=== PATIENT | female | born 1980 | race Caucasian/White ===

== ENCOUNTER 2020-03-10 20:48 | Observation (INO) ==
[2020-03-10 21:32] LABS: Hematocrit (blood only) 38.5 % (37-47); Hemoglobin 13.6 g/dL (12.0-16.0); Immature Granulocytes # (auto) 0.01 K/uL (0.00-0.02); Immature Granulocytes % (auto) 0.2 %; Lymphocytes # (auto) 0.38 K/uL (1.2-3.4); Lymphocytes % (auto) 6.6 %; Mean Corpuscular Hemoglobin 32.9 pg (25-34); Mean Corpuscular Hgb Conc 35.3 g/dL (32-36); Mean Corpuscular Volume 93.2 fL (80-100); Mean Platelet Volume 10.4 fL (7.4-10.4); Monocytes # (auto) 0.34 K/uL (0.11-0.59); Monocytes % (auto) 5.9 %; Neutrophils # (auto) 4.99 K/uL (1.4-6.5); Neutrophils % (auto) 87.3 %; Platelet Count 212 K/uL (130-400); RDW Standard Deviation 40.9 fL (36.4-46.3); Red Blood Count 4.13 M/uL (4.2-5.4); White Blood Count 5.72 K/uL (4.8-10.8)
[2020-03-10 21:35] LABS: INR 1.2 (0.9-1.1); Partial Thromboplastin Ratio 0.9; Partial Thromboplastin Time 25.5 Seconds (21.0-31.0); Prothrombin Time 12.1 Seconds (9.0-12.0)
[2020-03-10 21:41] LABS: Alanine Aminotransferase 18 U/L (12-78); Albumin Level 3.6 gm/dl (3.4-5.0); Aspartate Aminotransferase 13 U/L (15-37); BUN Creatinine Ratio 12.3 (10-20); Blood Urea Nitrogen 12 mg/dl (7-18); Calcium 8.5 mg/dl (8.5-10.1); Carbon Dioxide 25 mmol/L (21-32); Chloride 107 mmol/L (98-107); Est GFR (African American) 86.8; Est GFR (Non-African American) 74.9; Glucose 150 mg/dl (70-99); Magnesium 1.9 mg/dl (1.8-2.4); Potassium 3.9 mmol/L (3.5-5.1); Sodium 139 mmol/L (136-145)
[2020-03-10 21:55] LABS: Albumin Globulin Ratio 1.1 (0.9-2); Alkaline Phosphatase 64 U/L (45-117); Bilirubin,Total 3.1 mg/dl (0.2-1); Globulin 3.2 gm/dl (2.5-4.0); Thyroid Stimulating Hormone 0.487 uIu/ml (0.300-4.500); Total Protein 6.8 gm/dl (6.4-8.2); Troponin I 0.365 ng/ml (0-0.045)
[2020-03-10] MEDS ORDERED: SODIUM CHLORIDE 0.9% 1000ML 1,000 ML IV ONE (22:02)
--- NOTE | 2020-03-10 22:03 | XRay Report ---
XR chest 1V portable HISTORY: weakness COMPARISON: None. FINDINGS: The lungs are clear. Cardiac silhouette is normal in size. No pleural effusions. No pneumot horax. IMPRESSION: No acute process. ACT 112: Negative or not required by law. Electronically signed by: Diego Glasgow M.D. 03/10/2020 10:01 PM
[2020-03-10 22:19] LABS: Creatine Kinase 71 U/L (26-192); Phosphorus 2.1 mg/dl (2.5-4.9)
[2020-03-10 22:26] LABS: Appearance Urine Clear (Clear); Bacteria Urine Automated Negative (Negative); Bilirubin Urine Negative (Negative); Blood Urine 2+ (Negative); Cast Urine Automated 0 /lpf (0-5); Color Urine Yellow; Epithelial Cell Urine Auto >30 /lpf (0-5); Glucose Urine UA Negative (Negative); Ketones Urine Trace (Negative); Leukocyte Esterase Urine Negative (Negative); Nitrite Urine Negative (Negative); Protein Urine Negative (Negative); Specific Gravity Urine 1.013 (1.000-1.030); Urobilinogen Urine Negative (Negative)
--- NOTE | 2020-03-10 23:15 | Emergency Department Note ---
History of Present Illness General Chief complaint: Illness Stated complaint: NUMBNESS IN BOTH HANDS AND FEET Time Seen by Provider: 03/10/20 21:39 History of Present Illness Maximum Pain Intensity: 2 This 39-year-old presents to the ER complaining of peripheral tingling who had a parathyroid removed earlier today Location: Hands and feet Quality: Tingling Severity: Moderate Duration: This evening Timin PM Context: Patient was concerned and came in Modifying factors: better with calcium; worse with nothing Dr. Laguerre removed her parathyroid gland on the right side for hyperparathyroidism. She was discharged today. Surgery was at [facility] at 9:50 AM. Patient states she took 3750 mg of calcium just prior to arrival. Patient denies chest pain, dyspnea, fevers, flulike illness, nausea, vomiting, diarrhea, facial tingling leg swelling. She does complain of muscle cramping. She states she is healthy with no active medical problems. Home Medications Home Medications Medication Instructions Recorded Confirmed Type sertraline [Zoloft] 25 mg PO DAILY 03/10/20 03/10/20 History Past Med/Surg History Medical History Hyperparathyroidism Surgical History H/O parathyroidectomy Social History Feels Safe at Home: Yes Review of Systems A total of 10 systems reviewed and were otherwise negative Physical Exam Vital Signs Vital Signs - 24 hr 03/10/20 20:53 03/10/20 21:20 03/10/20 21:30 Temperature 36.5 C Temperature Source Oral Pulse Rate 83 77 Pulse Rate from SpO2 Sensor 76 Respiratory Rate 18 15 Respiratory Effort / Characteristics Non-Labored Spontaneous Respiratory Depth Normal Respiratory Pattern Regular Blood Pressure 108/69 111/68 Blood Pressure Mean 82 88 Blood Pressure Position Sitting Pulse Oximetry 96 100 Oxygen Delivery Method Room Air Room Air Sepsis Recent Fever Within 48 Hours No Sepsis New/Unexplained Change in Mental Status No Sepsis Action Taken by Nursing No Action Required 03/10/20 22:00 Temperature Temperature Source Pulse Rate 73 Pulse Rate from SpO2 Sensor 73 Respiratory Rate 19 Respiratory Effort / Characteristics Respiratory Depth Respiratory Pattern Blood Pressure 110/71 Blood Pressure Mean 80 Blood Pressure Position Pulse Oximetry 100 Oxygen Delivery Method Sepsis Recent Fever Within 48 Hours Sepsis New/Unexplained Change in Mental Status Sepsis Action Taken by Nursing VITALS: Vitals are noted on the nurse's note and reviewed by myself. Vital sig ns stable. GENERAL: Pleasant female, in no acute distress, nondiaphoretic, well-developed well-nourished. SKIN: Anterior neck with incision intact without signs of infection or hematoma, the rest of the skin was without rashes, erythema, edema, or bruising. There is no tenting of the skin. Capillary reflex less than 2 seconds. HEAD: Normocephalic atraumatic. EARS: External auditory canals clear, tympanic membranes pearly cline without erythema or effusion bilaterally. EYES: Pupils equal round and reactive to light and accommodation. Conjunctivae without injection, sclerae without icterus. Extraocular movements intact. NOSE: Patent, turbinates without inflammation or discharge. No sinus tenderness. MOUTH: Mucous membranes moist. Pharynx without erythema or exudate. Uvula midline. Airway patent. Tongue does not deviate. NECK: Supple without nuchal rigidity. No lymphadenopathy. No thyromegaly. Cervical spine is nontender. No JVD. HEART: Regular rate and rhythm without murmurs gallops or rubs. LUNGS: Clear to auscultation bilaterally without wheezes, rales or rhonchi. No retractions or accessory muscle use. ABDOMEN: Positive bowel sounds x 4. Normal tympanic percussion. Soft, nontender, without masses or organomegaly. Richards sign negative. No guarding or rebound tenderness. No CVA tenderness MUSCULOSKELETAL: No muscle atrophy, erythema, or edema noted. NEURO: Patient was alert and oriented to person place and time. Normal sensation to light and sharp touch. No focal neurological deficits. Course Administered Medications Discontinued Medications Sodium Chloride (Nss 1000ml) 1,000 mls @ 999 mls/hr IV .Q1H1M ONE Stop: 03/10/20 23:02 Last Admin: 03/10/20 22:21 Dose: 999 mls/hr Documented by: [id number] Medical Decision Making Medical Records Attestation: I reviewed the patient's medical records. Home Medications Current Medication List: was personally reviewed by md Laboratory Data Attestation: I reviewed the patient's lab results. Result diagrams: 03/10/20 21:13 03/10/20 21:13 Lab Results 03/10/20 03/10/20 03/10/20 Range/Units 21:13 21:13 21:13 WBC 5.72 (4.8-10.8) K/uL RBC 4.13 L (4.2-5.4) M/uL Hgb 13.6 (12.0-16.0) g/dL Hct 38.5 (37-47) % MCV 93.2 (80-100) fL MCH 32.9 (25-34) pg MCHC 35.3 (32-36) g/dL RDW Std Deviation 40.9 (36.4-46.3) fL RDW Coeff of Lisa 12.0 (11.5-14.5) % Plt Count 212 (130-400) K/uL MPV 10.4 (7.4-10.4) fL Immature Gran % (Auto) 0.2 % Neut % (Auto) 87.3 % Lymph % (Auto) 6.6 % Forrest % (Auto) 5.9 % Eos % (Auto) 0.0 % Baso % (Auto) 0.0 % Neut # (Auto) 4.99 (1.4-6.5) K/uL Lymph # (Auto) 0.38 L (1.2-3.4) K/uL Forrest # (Auto) 0.34 (0.11-0.59) K/uL Eos # (Auto) 0.00 (0-0.5) K/uL Baso # (Auto) 0.00 (0-0.2) K/uL Immature Gran # (Auto) 0.01 (0.00-0.02) K/uL PT 12.1 H (9.0-12.0) Seconds INR 1.2 H (0.9-1.1) APTT 25.5 (21.0-31.0) Seconds PTT Ratio 0.9 Sodium 139 (136-145) mmol/L Potassium 3.9 (3.5-5.1) mmol/L Chloride 107 (98-107) mmol/L Carbon Dioxide 25 (21-32) mmol/L Anion Gap 7.0 (3-11) BUN 12 (7-18) mg/dl Creatinine 0.95 (0.6-1.2) mg/dl Est Cr Clr Drug Dosing Not Reportable Est GFR ( Amer) 86.8 Est GFR (Non-Af Amer) 74.9 BUN/Creatinine Ratio 12.3 (10-20) Glucose 150 H (70-99) mg/dl Calcium 8.5 (8.5-10.1) mg/dl Ionized Calcium (1.12-1.32) mmol/L Phosphorus 2.1 L (2.5-4.9) mg/dl Magnesium 1.9 (1.8-2.4) mg/dl Total Bilirubin 3.1 H (0.2-1) mg/dl AST 13 L (15-37) U/L ALT 18 (12-78) U/L Alkaline Phosphatase 64 (45-117) U/L Total Creatine Kinase 71 (26-192) U/L Troponin I 0.365 H* (0-0.045) ng/ml Total Protein 6.8 (6.4-8.2) gm/dl Albumin 3.6 (3.4-5.0) gm/dl Globulin 3.2 (2.5-4.0) gm/dl Albumin/Globulin Ratio 1.1 (0.9-2) TSH 0.487 (0.300-4.500) uIu/ml PTH Intact (18.4-80.1) pg/ml Urine Color Urine Appearance (Clear) Urine pH (4.5-7.5) Ur Specific [place] (1.000-1.030) Urine Protein (Negative) Urine Glucose (UA) (Negative) Urine Ketones (Negative) Urine Blood (Negative) Urine Nitrite (Negative) Urine Bilirubin (Negative) Urine Urobilinogen (Negative) Ur Leukocyte Esterase (Negative) Urine WBC (Auto) (0-5) /hpf Urine RBC (Auto) (0-4) /hpf U Hyaline Cast (Auto) (0-5) /lpf U Epithel Cells (Auto) (0-5) /lpf Urine Bacteria (Auto) (Negative) 03/10/20 03/10/20 03/10/20 Range/Units 21:13 21:14 21:38 WBC (4.8-10.8) K/uL RBC (4.2-5.4) M/uL Hgb (12.0-16.0) g/dL Hct (37-47) % MCV (80-100) fL MCH (25-34) pg MCHC (32-36) g/dL RDW Std Deviation (36.4-46.3) fL RDW Coeff of Lisa (11.5-14.5) % Plt Count (130-400) K/uL MPV (7.4-10.4) fL Immature Gran % (Auto) % Neut % (Auto) % Lymph % (Auto) % Forrest % (Auto) % Eos % (Auto) % Baso % (Auto) % Neut # (Auto) (1.4-6.5) K/uL Lymph # (Auto) (1.2-3.4) K/uL Forrest # (Auto) (0.11-0.59) K/uL Eos # (Auto) (0-0.5) K/uL Baso # (Auto) (0-0.2) K/uL Immature Gran # (Auto) (0.00-0.02) K/uL PT (9.0-12.0) Seconds INR (0.9-1.1) APTT (21.0-31.0) Seconds PTT Ratio Sodium (136-145) mmol/L Potassium (3.5-5.1) mmol/L Chloride (98-107) mmol/L Carbon Dioxide (21-32) mmol/L Anion Gap (3-11) BUN (7-18) mg/dl Creatinine (0.6-1.2) mg/dl Est Cr Clr Drug Dosing Est GFR ( Amer) Est GFR (Non-Af Amer) BUN/Creatinine Ratio (10-20) Glucose (70-99) mg/dl Calcium (8.5-10.1) mg/dl Ionized Calcium 1.10 L (1.12-1.32) mmol/L Phosphorus (2.5-4.9) mg/dl Magnesium (1.8-2.4) mg/dl Total Bilirubin (0.2-1) mg/dl AST (15-37) U/L ALT (12-78) U/L Alkaline Phosphatase (45-117) U/L Total Creatine Kinase (26-192) U/L Troponin I (0-0.045) ng/ml Total Protein (6.4-8.2) gm/dl Albumin (3.4-5.0) gm/dl Globulin (2.5-4.0) gm/dl Albumin/Globulin Ratio (0.9-2) TSH (0.300-4.500) uIu/ml PTH Intact 23.5 (18.4-80.1) pg/ml Urine Color Yellow Urine Appearance Clear (Clear) Urine pH 8.0 H (4.5-7.5) Ur Specific [place] 1.013 (1.000-1.030) Urine Protein Negative (Negative) Urine Glucose (UA) Negative (Negative) Urine Ketones Trace H (Negative) Urine Blood 2+ H (Negative) Urine Nitrite Negative (Negative) Urine Bilirubin Negative (Negative) Urine Urobilinogen Negative (Negative) Ur Leukocyte Esterase Negative (Negative) Urine WBC (Auto) 1-5 (0-5) /hpf Urine RBC (Auto) 10-30 H (0-4) /hpf U Hyaline Cast (Auto) 0 (0-5) /lpf U Epithel Cells (Auto) >30 H (0-5) /lpf Urine Bacteria (Auto) Negative (Negative) Imaging Data Attestation: I personally reviewed and interpreted this imaging study as follows: MDM Narrative Prior records/ancillary studies reviewed and summarized above. Nursing notes reviewed. Additional history obtained from family. The patient's history was concerning for peripheral tingling. Differential diagnosis: Etiologies such as hypocalcemia, metabolic, infection, hypo/hyperglycemia, electrolyte abnormalities, cardiac sources, intracerebral event, toxicologic, neurologic, as well as others were entertained. Physical examination: As above. ER treatment provided: IV Lock An order was placed for continuous cardiac monitoring. The monitor shows a rate of 60-100 with a sinus rhythm. IV fluids On reassessment the patient felt better. Diagnostics interpretation by me: ECG: Ordered for tingling EKG: Normal sinus, normal intervals, no acute ST-T wave changes. Impression normal sinus with interpreted by myself I think arrhythmia is unlikely. EKG shows normal sinus rhythm with no interval abnormalities such as QT prolongation or WPW. There are no findings to suggest Brugada syndrome. Cardiac monitoring in the emergency department reveals no tachycardic or bradycardic dysrhythmia. Hypertrophic cardiomyopathy was considered but there are no clear historical elements pointing toward this. EKG is not suggestive. The QRS voltage is not extremely large and there are no suggestive Q waves. EKG #2: Ordered for elevated troponin EKG: Normal sinus, normal normals, no acute ST-T wave changes. Impression normal sinus rhythm surgical myself I think arrhythmia is unlikely. EKG shows normal sinus rhythm with no interval abnormalities such as QT prolongation or WPW. There are no findings to suggest B rugada syndrome. Cardiac monitoring in the emergency department reveals no tachycardic or bradycardic dysrhythmia. Hypertrophic cardiomyopathy was considered but there are no clear historical elements pointing toward this. EKG is not suggestive. The QRS voltage is not extremely large and there are no suggestive Q waves. The labs revealed elevated troponin. Slightly low ionized calcium. Imaging studies: Chest x-ray with no acute consolidation, pneumothorax or free air per my interpretation Consultation: A consultation was placed with Dr. Liu covering for Dr. Laguerre and recommend s 1500 mg of calcium 3 times a day and medical admission for elevated troponin. I spoke to Dr. Swartz, the hospitalist. The case was discussed and diagnostics were reviewed. The patient was evaluated in the ER for further treatment. HEART SCORE: Hx: high/mod/low suspicion: 0 ECG: ST depression/nonspecific changes/normal: 0 Age: Greater than 65/45-64/less than 45: 0 Risk factors: (Hypertension, hyperlipidemia, diabetes, coronary disease, tobacco use, cocaine use): 0 Troponin: Greater than 2 times normal limits/1-2 times normal limits/normal: 2 Total: 2 Exam and history seem consistent with elevated troponin and symptomatic hypocalcemia. Repeat troponin is unchanged. Patient had no chest pain or dyspnea. ENT and medicine were consulted. She will be admitted. By the evaluation outlined above emergent etiologies such as infection, electrolyte abnormalities, intracerebral event, toxologic, neurologic, abnormalities blood glucose, metabolic, as well as others were deemed relatively unlikely. The pt informed about the findings as listed above. All questions were answered and pleased with the treatment. The chart was completed utilizing [employer] Speech voice recognition software. Grammatical errors, random word insertions, pronoun errors, and incomplete sentences are an occassional consequence of this system due to software limitations, ambient noise, and hardware issues. Any formal questions or concerns about the content, text, or information contained within the body of this dictation should be directly addressed to the physician commercial lending assistant for clarification. Impression & Plan Elevated troponin, Tingling in extremities Discharge Plan Visit Data Chief Complaint: Illness Stated Complaint: NUMBNESS IN BOTH HANDS AND FEET ED Provider: Eldon Hutton ED Midlevel Provider: Alicia Guillermo Discharge Problem: Elevated troponin, Tingling in extremities Patient Disposition: Being Evaluated by Hospitalist Condition: Good Forms Stand Alone Forms: My [facility] Prescriptions Prescriptions: No Action sertraline [Zoloft] 25 mg Tablet 25 mg PO DAILY RF: 0 Referrals Referrals: Fabio Nicholas MD [Primary Care Provider] -
[2020-03-11] MEDS ORDERED: NITROGLYCERIN SL 0.4 MG/TAB TAB SL PRN (00:11)
[2020-03-11] MEDS ORDERED: SODIUM PHOSPHATE 3 MMOL/1 ML INFUSION IV STA (00:11)
[2020-03-11] MEDS ORDERED: PATIENT'S ALLERGY INFO NEEDS ENTERED SCH (00:30)
[2020-03-11] MEDS ORDERED: SODIUM PHOSPHATE 21 MMOL in SODIUM CHLORIDE 0.9% 500 ML IV ONE (00:30)
[2020-03-11] MEDS ORDERED: INFLUENZA ADMINISTRATION CHARGE ONE (00:35)
[2020-03-11] MEDS ORDERED: INFLUENZA VIRUS QUAD VACCINE 0.5 ML SYR IM ONE (00:35)
[2020-03-11] MEDS ORDERED: MoRPHine SULFATE 2 MG/ML CARP IV PRN (00:51)
[2020-03-11] MEDS: D5W AND NSS 1,000 ML IV SCH ×2 (01:05→12:52)
[2020-03-11] MEDS: CALCIUM CARBONATE 500 MG CHEWABLE TAB PO SCH ×4 (01:05→20:05)
--- NOTE | 2020-03-11 03:00 | History and Physical Report ---
DATE OF ADMISSION: 03/10/2020 CHIEF COMPLAINT: Tingliness and cramps in upper extremities. HISTORY OF PRESENT ILLNESS: This is a 39-year-old female with past medical history significant for SVT, depression, history of kidney stones. The patient is status post parathyroidectomy today for hyperparathyroidism at [facility] and she was discharged. At home, she started noticing tingliness and paresthesias in the upper extremities and some cramps and the patient was took Tums but her symptoms are not improved, she has talked to the on-call ENT and advised to come and check her calcium and PTH levels. Her calcium level is 8.5, ionized calcium is 1.1. PTH intact is 23.5 within normal range. Her troponin is 0.365, phosphorus 2.1. Rest of the labs are okay, currently resting comfortably and hemodynamically stable.But still feels some paraesthesias and cramps in upper extremities. Currently, the patient is resting comfortably, hemodynamically stable. Denies any headache, no dizziness, no blurred vision, no earache. No runny nose, no sore throat. No cough, no shortness of breath, no chest pain. No fever, no chills. She was nauseous earlier, but that improved. No abdominal pain. Normal bowel and bladder movements, seems somewhat constipated. No rash. The patient has a history of SVT in the past, but recently no issues. ALLERGIES: No allergies on file. PAST MEDICAL HISTORY: As mentioned above. PAST SURGICAL HISTORY: Tonsillectomy and adenoidectomy, parathyroidectomy. MEDICATIONS: Zoloft 25 mg p.o. at bedtime. FAMILY HISTORY: Significant for no known problems in father and mother as per the Epic. SOCIAL HISTORY: . No smoking, 2 standard drinks of alcohol per week. No drug use. REVIEW OF SYMPTOMS: As per HPI. Rest of review of symptoms negative. PHYSICAL EXAMINATION: GENERAL: The patient is of moderate build, not in acute distress. VITAL SIGNS: Temperature 36.5, pulse 74, respiratory rate 24, blood pressure 120/79, oxygen 100% on room air. HEENT: Pupils equal, round and reactive to light. NECK: Status post parathyroidectomy. Surgical site is clean, no drainage or redness seen. CARDIOVASCULAR SYSTEM: S1, S2 heard. Regular rate and rhythm. No murmur, no gallop. RESPIRATORY SYSTEM: Normal AP diameter. No accessory muscle use. No wheezing, no crackles. ABDOMEN: Soft, bowel sounds present, nontender. No distention. CENTRAL NERVOUS SYSTEM: Cranial nerves II-XII grossly intact, nonfocal. EXTREMITIES: no edema, no erythema. LABORATORY DATA: WBC 5.7, hematocrit 38.5, platelets 212. PT 12.1, INR 1.2, APTT 25.5. Sodium 139, potassium 3.9, chloride 107, bicarb 25, BUN 12, creatinine 0.9, serum glucose 150, calcium 8.5, ionized calcium 1.1, phosphorus 2.1, magnesium 1.1. Total bilirubin 3.1, AST 13, ALT 18, alkaline phosphatase 64. Total creatine kinase 71. Troponin I 0.365. TSH 0.48. PTH intact 23.5, albumin 3.6. Urinalysis, trace ketones, +2 blood. IMAGING: Chest x-ray: No acute process. EKG: Normal sinus rhythm, rate of 71. No previous ECG available. No acute ST-T changes seen. ASSESSMENT AND PLAN: This is a 39-year-old female who presents with status post parathyroidectomy, who comes due to paresthesias in her hands. 1. Paresthesias in her hands, status post parathyroidectomy. Symptoms of hypocalcemia Her ionized calcium is 1.1 and serum calcium is 8.5 borderline. ENT recommending Tums 1500mg t.i.d. which we will continue. PTH is normal .Will monitor in the Med/Tele. If any concerns, we will consult ENT and follow the repeat labs in a.m. 2. Elevated troponin. The patient is asymptomatic. EKG is okay, possibly From stress from surgery. We will follow serial enzymes, echocardiogram. We will consult Cardiology in a.m. for further recommendation. We will keep her n.p.o. from midnight. 3. Elevated total bilirubin. AST, ALT and alkaline phosphatase normal. Probably Gilbert syndrome. We will follow repeat labs in a.m. Follow up with PCP. 4. Depression. Continue Zoloft. 5. Hypophosphatemia. ill replace. Follow labs in am. 6. Deep venous thrombosis prophylaxis, SCDs for now. DISPOSITION: Observe in med/tele. Level 1 full code. Expect to discharge home and follow with family doctor. LINDSAYD
[2020-03-11] MEDS: ACETAMINOPHEN 325 MG TAB PO PRN ×3 (03:47→19:57)
[2020-03-11 05:53] LABS: Basophils # (auto) 0.01 K/uL (0-0.2); Basophils % (auto) 0.2 %; Eosinophils # (auto) 0.02 K/uL (0-0.5); Eosinophils % (auto) 0.3 %; Hematocrit (blood only) 33.1 % (37-47); Hemoglobin 11.7 g/dL (12.0-16.0); Immature Granulocytes # (auto) 0.01 K/uL (0.00-0.02); Immature Granulocytes % (auto) 0.2 %; Lymphocytes # (auto) 1.51 K/uL (1.2-3.4); Lymphocytes % (auto) 23.5 %; Mean Corpuscular Hemoglobin 33.5 pg (25-34); Mean Corpuscular Hgb Conc 35.3 g/dL (32-36); Mean Corpuscular Volume 94.8 fL (80-100); Monocytes # (auto) 0.79 K/uL (0.11-0.59); Monocytes % (auto) 12.3 %; Neutrophils # (auto) 4.08 K/uL (1.4-6.5); Neutrophils % (auto) 63.5 %; Platelet Count 169 K/uL (130-400); RDW Coefficient of Variation 12.2 % (11.5-14.5); RDW Standard Deviation 41.5 fL (36.4-46.3); Red Blood Count 3.49 M/uL (4.2-5.4); White Blood Count 6.42 K/uL (4.8-10.8)
[2020-03-11 07:04] LABS: Albumin Level 3.1 gm/dl (3.4-5.0); BUN Creatinine Ratio 14.3 (10-20); Bilirubin Direct 0.3 mg/dl (0-0.2); Bilirubin,Total 2.5 mg/dl (0.2-1); Calcium 8.1 mg/dl (8.5-10.1); Creatinine Clr Calc Pharmacy 105.1 ml/min; Est GFR (African American) 129.4; Est GFR (Non-African American) 111.6; Magnesium 1.7 mg/dl (1.8-2.4); Phosphorus 4.2 mg/dl (2.5-4.9); Potassium 3.5 mmol/L (3.5-5.1); Total Protein 5.8 gm/dl (6.4-8.2); Troponin I 0.185 ng/ml (0-0.045)
--- NOTE | 2020-03-11 08:40 | Ears,Nose,Throat Progress Note ---
Date of Service March 11, 2020 Assessment & Plan (1) Tingling in extremities: Elevated troponin, but normal EKG. PTH is normal. Suspect this is a calcium absorption issue. Continue calcium supplementation. Would add rocaltrol 0.5mcg BID as well to help with Ca absorption. Present on Admission?: Yes Admission and Anticipated Discharge Date Admission Date: March 10, 2020 Subjective Patient admitted last night with hypocalcemia symptoms. Calcium was 8.5, then 8.1 around midnight. No calcium level this am. She was started on TUMS 1500 TID. Physical Exam Neck: Neck: Incision intact. Flaps are flat. Results & Data ([facility]) Vital Signs (Past 12 Hours) Vital Signs Temp Pulse Pulse Resp BP BP BP 03/11/20 08:19 37.0 C 66 18 109/71 03/11/20 07:10 70 03/11/20 04:56 37.1 C 70 18 104/65 03/11/20 03:24 81 03/11/20 00:11 36.8 C 18 110/65 03/10/20 23:44 72 18 103/67 03/10/20 23:00 74 24 120/79 03/10/20 22:30 84 20 105/65 03/10/20 22:00 73 19 110/71 03/10/20 21:30 77 15 111/68 03/10/20 20:53 36.5 C 83 18 108/69 Pulse Ox 03/11/20 08:19 100 03/11/20 07:10 03/11/20 04:56 100 03/11/20 03:24 03/11/20 00:11 100 03/10/20 23:44 97 03/10/20 23:00 100 03/10/20 22:30 100 03/10/20 22:00 100 03/10/20 21:30 100 03/10/20 20:53 96
[2020-03-11] MEDS: SERTRALINE HCL 50 MG TABLET PO SCH (08:48)
--- NOTE | 2020-03-11 08:54 | Communication Note ---
Date of Service: March 11, 2020 Patient admitted earlier today, please see H&P for detailed documentation 39-year-old female, status post recent parathyroidectomy, admitted with upper and lower extremity numbness, tingling sensation Noted to have moderate hypocalcemia, calcium level 8.5 with ionized calcium 1.10 Patient started with p.o. calcium supplement, Tums 1500 3 times daily, A.m. calcium level 8.1, Continues to have tingling numbness in extremities, Patient is ordered 1 g of calcium gluconate Continue p.o. calcium supplements Added Rocaltrol 0.25 twice daily first dose now No complaint of shortness of breath, no chest pain no orthopnea Mild elevation of troponin possible nonspecific, no prior history of KS or cardiac disease Resting echo ordered Cardiology eval, May need outpatient cardiac stress test would be a stratification We will reevaluate patient later this afternoon, Patient has had resolution of symptoms, Possible discharge home later today ENT: Dr. Laguerre present at bedside In agreement with above plan Joanna Nation MD
[2020-03-11] MEDS ORDERED: MAGNESIUM SULFATE / D5W 1 GM/100 ML BAG IV ONE (09:00)
[2020-03-11] MEDS ORDERED: CALCITRIOL 0.25 MCG CAPSULE PO SCH (09:00)
[2020-03-11] MEDS ORDERED: CALCIUM GLUCONATE 10% 1,000 MG in SODIUM CHLORIDE 0.9% 50 ML IV STA (09:08)
[2020-03-11] MEDS: CALCITRIOL 0.25 MCG CAPSULE PO SCH ×2 (09:36→20:06)
--- NOTE | 2020-03-11 11:55 | Cardiology Consultation ---
Date of Consultation March 11, 2020 Assessment & Plan (1) Elevated troponin: Patient is a 39-year-old female admitted with symptoms of hypocalcemia status post parathyroidectomy for hyperparathyroidism. Broad pattern laboratory testing on admission demonstrated elevated troponin. No cardiac symptoms or complaints Normal EKG and normal echocardiogram on serial testing Suspect spurious elevation in troponin secondary to metabolic abnormalities and recent surgery. No evidence suggest myocardial ischemia History of Present Illness Reason for Consultation: Elevated troponin Requesting Physician: Dr. 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 Patient presented last evening with symptoms of hypocalcemia Routine broad pattern of laboratory studies revealed elevated troponin. Patient has no known prior history of significant ischemic heart disease. Does carry history of past sinus tachycardia versus SVT with exercise prior evaluation 2018 including normal stress treadmill testing 13.5 METS. Patient has no known structural heart disease. 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 . No melena or hematochezia. Does note history of intermittent hematuria and passed renal stone No tachypalpitations syncope or near syncope. Appetite and weight are stable. No change in exercise capacity recently Serial EKGs since admission x3 revealed normal tracings. Echocardiogram demonstrates normal LV systolic function without wall motion or normality Allergies Allergy/AdvReac Type Severity Reaction Status Date / Time No Known Allergies Allergy Unverified 03/11/20 00:37 Home Medications Home Medications Medication Instructions Recorded Confirmed Type sertraline [Zoloft] 25 mg PO DAILY 03/10/20 03/10/20 History Patient History Medical History Hyperparathyroidism Surgical History H/O parathyroidectomy Social History Smoking Status: Never smoker Second Hand Exposure: No; Do You Dip or Chew Tobacco: No; Hx Alcohol Use: Yes Alcohol type: wine Hx Substance Use: No Preferred Language: [place]an Communication Ability: Effective Out And Out Cigar Maker Hand Required: No Beliefs That Will Affect Care: None Current Living Situation: Spouse and Family Other Information That Helps Us Care for You: No Feels Safe at Home: Yes Safety Concerns: Feels Safe At This Time Review of Systems Review of Systems: All systems reviewed & are unremarkable except as noted in HPI & below Physical Exam Constitutional: WD/WN, vitals as above Eyes: PERRL, conjunctivae normal, anicteric sclerae ENMT: external ear and nose normal, oropharynx normal Neck: trachea midline, no thyromegaly Respiratory: normal respiratory effort, lungs clear to auscultation Cardiovascular: Rate/Rhythm: regular rate and regular rhythm Heart Sounds: normal S1 and normal S2; no gallop and no murmur Palpation: normal PMI Vessels: normal carotid upstroke and radial pulses present; no JVD and no carotid bruit Extremities: no edema Gastrointestinal (Abdomen): normal bowel sounds, soft, nontender, no hepatosplenomegaly Musculoskeletal: no cyanosis or clubbing, extremities motor strength 5/5 Skin: no rashes, warm and dry Neurologic: PERRL, EOMI, accommodation nl, no face palsy, no dysarthria Psychiatric: A+Ox3, euthymic affect Results & Data ([facility]) Vital Signs (Past 12 Hours) Vital Signs Temp Pulse Pulse Resp BP BP Pulse Ox 03/11/20 11:28 36.9 C 65 18 105/68 98 03/11/20 08:19 37.0 C 66 18 109/71 100 03/11/20 07:10 70 03/11/20 04:56 37.1 C 70 18 104/65 100 03/11/20 03:24 81 03/11/20 00:11 36.8 C 18 110/65 100 Laboratory Results Laboratory Results - last 24 hr 03/10/20 03/10/20 03/10/20 21:13 21:13 21:13 WBC 5.72 RBC 4.13 L Hgb 13.6 Hct 38.5 MCV 93.2 MCH 32.9 MCHC 35.3 RDW Std Deviation 40.9 RDW Coeff of Lisa 12.0 Plt Count 212 MPV 10.4 Immature Gran % (Auto) 0.2 Neut % (Auto) 87.3 Lymph % (Auto) 6.6 [place] % (Auto) 5.9 Eos % (Auto) 0.0 Baso % (Auto) 0.0 Neut # (Auto) 4.99 Lymph # (Auto) 0.38 L [place] # (Auto) 0.34 Eos # (Auto) 0.00 Baso # (Auto) 0.00 Immature Gran # (Auto) 0.01 PT 12.1 H INR 1.2 H APTT 25.5 PTT Ratio 0.9 Sodium 139 Potassium 3.9 Chloride 107 Carbon Dioxide 25 Anion Gap 7.0 BUN 12 Creatinine 0.95 Est Cr Clr Drug Dosing Not Reportable Est GFR ( Amer) 86.8 Est GFR (Non-Af Amer) 74.9 BUN/Creatinine Ratio 12.3 Glucose 150 H Calcium 8.5 Ionized Calcium Phosphorus 2.1 L Magnesium 1.9 Total Bilirubin 3.1 H Direct Bilirubin AST 13 L ALT 18 Alkaline Phosphatase 64 Total Creatine Kinase 71 Troponin I 0.365 H* Total Protein 6.8 Albumin 3.6 Globulin 3.2 Albumin/Globulin Ratio 1.1 25-OH Vitamin D Total TSH 0.487 PTH Intact Urine Color Urine Appearance Urine pH Ur Specific [place] Urine Protein Urine Glucose (UA) Urine Ketones Urine Blood Urine Nitrite Urine Bilirubin Urine Urobilinogen Ur Leukocyte Esterase Urine WBC (Auto) Urine RBC (Auto) U Hyaline Cast (Auto) U Epithel Cells (Auto) Urine Bacteria (Auto) 03/10/20 03/10/20 03/10/20 21:13 21:14 21:38 WBC RBC Hgb Hct MCV MCH MCHC RDW Std Deviation RDW Coeff of Lisa Plt Count MPV Immature Gran % (Auto) Neut % (Auto) Lymph % (Auto) [place] % (Auto) Eos % (Auto) Baso % (Auto) Neut # (Auto) Lymph # (Auto) [place] # (Auto) Eos # (Auto) Baso # (Auto) Immature Gran # (Auto) PT INR APTT PTT Ratio Sodium Potassium Chloride Carbon Dioxide Anion Gap BUN Creatinine Est Cr Clr Drug Dosing Est GFR ( Amer) Est GFR (Non-Af Amer) BUN/Creatinine Ratio Glucose Calcium Ionized Calcium 1.10 L Phosphorus Magnesium Total Bilirubin Direct Bilirubin AST ALT Alkaline Phosphatase Total Creatine Kinase Troponin I Total Protein Albumin Globulin Albumin/Globulin Ratio 25-OH Vitamin D Total TSH PTH Intact 23.5 Urine Color Yellow Urine Appearance Clear Urine pH 8.0 H Ur Specific [place] 1.013 Urine Protein Negative Urine Glucose (UA) Negative Urine Ketones Trace H Urine Blood 2+ H Urine Nitrite Negative Urine Bilirubin Negative Urine Urobilinogen Negative Ur Leukocyte Esterase Negative Urine WBC (Auto) 1-5 Urine RBC (Auto) 10-30 H U Hyaline Cast (Auto) 0 U Epithel Cells (Auto) >30 H Urine Bacteria (Auto) Negative 03/11/20 03/11/20 03/11/20 05:12 05:12 05:12 WBC 6.42 RBC 3.49 L Hgb 11.7 L Hct 33.1 L MCV 94.8 MCH 33.5 MCHC 35.3 RDW Std Deviation 41.5 RDW Coeff of Lisa 12.2 Plt Count 169 MPV 11.0 H Immature Gran % (Auto) 0.2 Neut % (Auto) 63.5 Lymph % (Auto) 23.5 [place] % (Auto) 12.3 Eos % (Auto) 0.3 Baso % (Auto) 0.2 Neut # (Auto) 4.08 Lymph # (Auto) 1.51 [place] # (Auto) 0.79 H Eos # (Auto) 0.02 Baso # (Auto) 0.01 Immature Gran # (Auto) 0.01 PT INR APTT PTT Ratio Sodium 143 Potassium 3.5 Chloride 112 H Carbon Dioxide 27 Anion Gap 4.0 BUN 9 Creatinine 0.64 D Est Cr Clr Drug Dosing 105.1 Est GFR ( Amer) 129.4 Est GFR (Non-Af Amer) 111.6 BUN/Creatinine Ratio 14.3 Glucose 113 H Calcium 8.1 L Ionized Calcium Phosphorus 4.2 D Magnesium 1.7 L Total Bilirubin 2.5 H Direct Bilirubin 0.3 H AST 12 L ALT 17 Alkaline Phosphatase 53 Total Creatine Kinase Troponin I 0.185 H* Total Protein 5.8 L Albumin 3.1 L Globulin Albumin/Globulin Ratio 25-OH Vitamin D Total 28.6 L TSH PTH Intact Urine Color Urine Appearance Urine pH Ur Specific [place] Urine Protein Urine Glucose (UA) Urine Ketones Urine Blood Urine Nitrite Urine Bilirubin Urine Urobilinogen Ur Leukocyte Esterase Urine WBC (Auto) Urine RBC (Auto) U Hyaline Cast (Auto) U Epithel Cells (Auto) Urine Bacteria (Auto) 03/11/20 11:17 WBC RBC Hgb Hct MCV MCH MCHC RDW Std Deviation RDW Coeff of Lisa Plt Count MPV Immature Gran % (Auto) Neut % (Auto) Lymph % (Auto) [place] % (Auto) Eos % (Auto) Baso % (Auto) Neut # (Auto) Lymph # (Auto) [place] # (Auto) Eos # (Auto) Baso # (Auto) Immature Gran # (Auto) PT INR APTT PTT Ratio Sodium Potassium Chloride Carbon Dioxide Anion Gap BUN Creatinine Est Cr Clr Drug Dosing Est GFR ( Amer) Est GFR (Non-Af Amer) BUN/Creatinine Ratio Glucose Calcium Ionized Calcium Phosphorus Magnesium Total Bilirubin Direct Bilirubin AST ALT Alkaline Phosphatase Total Creatine Kinase Troponin I 0.156 H* Total Protein Albumin Globulin Albumin/Globulin Ratio 25-OH Vitamin D Total TSH PTH Intact Urine Color Urine Appearance Urine pH Ur Specific [place] Urine Protein Urine Glucose (UA) Urine Ketones Urine Blood Urine Nitrite Urine Bilirubin Urine Urobilinogen Ur Leukocyte Esterase Urine WBC (Auto) Urine RBC (Auto) U Hyaline Cast (Auto) U Epithel Cells (Auto) Urine Bacteria (Auto)
[2020-03-11] MEDS ORDERED: CALCIUM GLUCONATE 10% 1,000 MG in SODIUM CHLORIDE 0.9% 50 ML IV ONE (15:30)
--- NOTE | 2020-03-11 16:48 | Electrocardiogram Report ---
Test Reason : Blood Pressure : / mmHG Vent. Rate : 071 BPM Atrial Rate : 071 BPM P-R Int : 142 ms QRS Dur : 084 ms QT Int : 418 ms P-R-T Axes : 077 086 068 degrees QTc Int : 454 ms Normal sinus rhythm Normal ECG When compared with ECG of 10-MAR-2020 21:20, (unconfirmed) No significant change was found Confirmed by Nima Marc ([id number]) on 03/11/2020 4:48:25 PM Referred By: Rayray Laguerre Confirmed By:Jose L Marc
--- NOTE | 2020-03-11 16:48 | Electrocardiogram Report ---
Test Reason : Blood Pressure : / mmHG Vent. Rate : 071 BPM Atrial Rate : 071 BPM P-R Int : 138 ms QRS Dur : 086 ms QT Int : 406 ms P-R-T Axes : 086 088 072 degrees QTc Int : 441 ms Normal sinus rhythm Normal ECG No previous ECGs available Confirmed by Nima Marc ([id number]) on 03/11/2020 4:48:16 PM Referred By: Rayray Laguerre Confirmed By:Jose L Marc
--- NOTE | 2020-03-11 16:54 | Electrocardiogram Report ---
Test Reason : Blood Pressure : / mmHG Vent. Rate : 071 BPM Atrial Rate : 071 BPM P-R Int : 148 ms QRS Dur : 090 ms QT Int : 406 ms P-R-T Axes : 082 087 076 degrees QTc Int : 441 ms Normal sinus rhythm Normal ECG When compared with ECG of 10-MAR-2020 22:13, (unconfirmed) No significant change was found Confirmed by Nima Marc ([id number]) on 03/11/2020 4:54:09 PM Referred By: Rayray Laguerre Confirmed By:Jose L Marc
[2020-03-11 18:38] LABS: Calcium 8.3 mg/dl (8.5-10.1); Magnesium 1.6 mg/dl (1.8-2.4)
--- NOTE | 2020-03-11 19:55 | Communication Note ---
Date of Service: March 11, 2020 6 pm labs reviewed ionized Ca level normalized total ca level remains low 8.3 ( was 8.1 in AM ) -pt received 2 gm of IV ca gluconate and 1 gm of IV mg in am Mg level remains low 1.6 ordered 2 mg of IV mg to correct low mg level 1 gm of IV calcium ordered for AM repeat labs in am plan of care updated to pt over phone Joanna Nation MD
[2020-03-11] MEDS: MAGNESIUM SULFATE / D5W 1 GM/100 ML BAG IV SCH ×2 (19:57→21:49)
[2020-03-11] MEDS: MAGNESIUM OXIDE 400 MG TAB PO SCH (21:49)
[2020-03-12] MEDS ORDERED: CALCIUM GLUCONATE 10% 1,000 MG in SODIUM CHLORIDE 0.9% 50 ML IV ONE (06:00)
[2020-03-12] MEDS: ACETAMINOPHEN 325 MG TAB PO PRN (06:02)
[2020-03-12 06:50] LABS: Albumin Level 3.2 gm/dl (3.4-5.0); Calcium 7.8 mg/dl (8.5-10.1); Creatinine Clr Calc Pharmacy 105.1 ml/min; Est GFR (African American) 129.4; Est GFR (Non-African American) 111.6; Magnesium 1.9 mg/dl (1.8-2.4); Potassium 3.2 mmol/L (3.5-5.1)
[2020-03-12] MEDS ORDERED: POTASSIUM CHLORIDE 10 MEQ TABCR PO STA (06:52)
[2020-03-12 06:54] LABS: Albumin Globulin Ratio 1.1 (0.9-2); Bilirubin,Total 1.6 mg/dl (0.2-1); Globulin 2.8 gm/dl (2.5-4.0); Phosphorus 3.1 mg/dl (2.5-4.9)
--- NOTE | 2020-03-12 07:14 | Communication Note ---
Date of Service: March 12, 2020 AM labs reviewed : Ionized Ca remains in normal level 1.20 Mg and phos level normalized after supplement Ca 7.8 /albumin 3.2 -corrected Ca 8.4 PO k supplement ordered for low K pt will be discharged home today if remains asymptomatic will need to follow up with Endocrine as an outpatient Joanna Nation MD
[2020-03-12] MEDS: SERTRALINE HCL 50 MG TABLET PO SCH (07:23)
[2020-03-12] MEDS: CALCIUM CARBONATE 500 MG CHEWABLE TAB PO SCH (07:23)
[2020-03-12] MEDS: CALCITRIOL 0.25 MCG CAPSULE PO SCH (07:23)
[2020-03-12] MEDS: MAGNESIUM OXIDE 400 MG TAB PO SCH (07:24)
--- NOTE | 2020-03-12 08:01 | Discharge Summary ---
Date of Service March 12, 2020 Admission HPI Per Admitting Provider DICTATED BY: Maninder Swartz MD DATE OF ADMISSION: 03/10/2020 CHIEF COMPLAINT: Tingliness and cramps in upper extremities. HISTORY OF PRESENT ILLNESS: This is a 39-year-old female with past medical history significant for SVT, depression, history of kidney stones. The patient is status post parathyroidectomy today for hyperparathyroidism at [place] and she was discharged. At home, she started noticing tingliness and paresthesias in the upper extremities and some cramps and the patient was took Tums but her symptoms are not improved, she has talked to the on-call ENT and advised to come and check her calcium and PTH levels. Her calcium level is 8.5, ionized calcium is 1.1. PTH intact is 23.5 within normal range. Her troponin is 0.365, phosphorus 2.1. Rest of the labs are okay, currently resting comfortably and hemodynamically stable.But still feels some paraesthesias and cramps in upper extremities. Currently, the patient is resting comfortably, hemodynamically stable. Denies any headache, no dizziness, no blurred vision, no earache. No runny nose, no sore throat. No cough, no shortness of breath, no chest pain. No fever, no chills. She was nauseous earlier, but that improved. No abdominal pain. Normal bowel and bladder movements, seems somewhat constipated. No rash. The patient has a history of SVT in the past, but recently no issues. Principal Diagnosis Hypocalcemia-due to parathyroidectomy Discharge Exam Constitutional WD/WN, vitals as above Eyes PERRL, conjunctivae normal, anicteric sclerae ENMT external ear and nose normal, oropharynx normal Respiratory normal respiratory effort, lungs clear to auscultation Cardiovascular RRR, no murmur, no edema Gastrointestinal (Abdomen) normal bowel sounds, soft, nontender, no hepatosplenomegaly Musculoskeletal no cyanosis or clubbing, extremities motor strength 5/5 Skin no rashes, warm and dry Neurologic PERRL, EOMI, accommodation nl, no face palsy, no dysarthria Psychiatric A+Ox3, euthymic affect Discharge Data Allergies Allergy/AdvReac Type Severity Reaction Status Date / Time No Known Allergies Allergy Unverified 03/11/20 00:37 Consultations 03/10/20 22:48 ED Decision to Admit Stat 03/11/20 08:00 Consult Cardiology Routine Hospital Course (1) Iatrogenic hypocalcemia: s/p parathyroidectomy admitted with symptomatic hypocalcemia( tingling and numbness on face /upper and lower ext ) , Ca 8.5 /low ionized ca 1.10 pt was on PO Tums /Ca supplement -dose increased to 1500 mg TID . added PO calcitriol BID ionized Ca level normalized next day 03/01/20 total ca level remains low 8.3 ( was 8.1 in AM ) -pt received 2 gm of IV ca gluconate and 1 gm of IV mg in am Mg level remains low 1.6 ordered 2 mg of IV mg to correct low mg level 1 gm of IV calcium ordered for AM Date of Service: March 12, 2020 AM labs reviewed : Ionized Ca remains in normal level 1.20 Mg and phos level normalized after supplement Ca 7.8 /albumin 3.2 -corrected Ca 8.4 PO k supplement ordered for low K pt will be discharged home today if remains asymptomatic will need to follow up with Endocrine as an outpatient pt evaluated at bedside does not have any symptoms of tingling or numbness pt is discharged home today Joanna Nation MD Total Time Total Time Spent Total Time Spent (In Minutes): 35 mins Discharge Plan Discharge Items Patient Disposition: Home - Self-Care Reason For Visit: ILLNESS Discharge Diagnosis: Hypocalcemia-due to parathyroidectomy Condition on Discharge: Good Activity: Resume your previous activity Non-emergency contact: Primary Care Provider Call non-emergency contact if: you have any medication questions Follow-up/Referrals: Rayray Laguerre DO [Physician] - Fabio Nicholas MD [Primary Care Provider] - Diet: Regular Ambulatory Orders: Calcium (Routine) Timeframe: 1 Week Location: Determined by Patient Ordered By: Joanna Nation Ionized Calcium (Routine) Timeframe: 1 Week Location: Determined by Patient Ordered By: Joanna Nation Comprehensive Metabolic Panel (Routine) Timeframe: 1 Week Location: Determined by Patient Ordered By: Joanna Nation Addtl Attending Provider Instructions: Hospital follow-up with family physician Dr. Nicholas in a week, office will call with appointment Lab work : Calcium, ionized calcium, phosphorus, comprehensive metabolic panel in a week Take Tums 1500 mg 3 times [id number] Please drink plenty of fluids, stool softeners if needed to prevent constipation You have borderline low vitamin D level Vitamin D supplement: Calcitriol 0.25 mcg by mouth twice daily ordered Repeat vitamin D level in 3 to 4 months ENT follow-up as per schedule Please call your family physician or return back to ER if you start to experience similar symptoms Pending Studies at Discharge: Yes Studies:: Comprehensive metabolic panel, calcium, ionized calcium, phosphorus- level Stand-Alone Forms: My [facility], Smoking Cessation Medications and DC Order Prescriptions: New calcium carbonate [Tums] 200 mg calcium (500 mg) Tablet,Chewable 1,500 mg PO TID Qty: 0 RF: 0 calcitriol 0.25 mcg Capsule 0.25 mcg PO BID 30 Days Qty: 60 RF: 0 magnesium oxide 400 mg (241.3 mg magnesium) Tablet 400 mg PO DAILY 30 Days Qty: 30 RF: 0 Continued sertraline [Zoloft] 25 mg Tablet 25 mg PO DAILY RF: 0 Discharge Orders: Discharge Order (Routine); Ordered 03/12/20 Ordered By: Joanna Nation Admission Data Admit Date/Time: 03/10/20 23:06 Attending Provider: Joanna Nation Admit Provider: Maninder Swartz Primary Care Provider: Fabio Nicholas Other Providers: Paxton Boss ; Victorino Good ; Remi Hood ; Navin Mays ; Sam Rodriguez ; Scott Romano ; Carla Potts ; Phoebe Locke ; Sadiq Soto ; Maninder Swartz Other Interventions: Discharge Summary Assessment (RN) Last Done: 03/12/20 07:58
--- NOTE | 2020-03-12 11:07 | Electrocardiogram Report ---
Test Reason : Blood Pressure : / mmHG Vent. Rate : 056 BPM Atrial Rate : 056 BPM P-R Int : 142 ms QRS Dur : 086 ms QT Int : 446 ms P-R-T Axes : 075 087 092 degrees QTc Int : 430 ms Sinus bradycardia Otherwise normal ECG When compared with ECG of 11-MAR-2020 06:54, No significant change was found Confirmed by Nima Marc ([id number]) on 03/12/2020 11:06:34 AM Referred By: Rayray Laguerre Confirmed By:Jose L Marc
== END 2020-03-12 09:06 | disposition home or self-care (01) ==
LOC: ED 20:48 → 2W 20:48
DX: Z98.890 Other specified postprocedural states; E83.39 Other disorders of phosphorus metabolism; E83.51 Hypocalcemia; Z79.899 Other long term (current) drug therapy; E55.9 Vitamin D deficiency, unspecified; F32.9 Major depressive disorder, single episode, unspecified; R79.89 Other specified abnormal findings of blood chemistry